=== PATIENT | male | born 1990 | race African-American/Black ===

== ENCOUNTER 2017-06-18 07:44 | Emergency (ER) | payer OTHER ==
[~2017-06-18] VITALS: Ht 188 cm; Wt 93.3 kg
[2017-06-18 07:46] VITALS: BP 176/100
[2017-06-18] MEDS ORDERED: AMOXICILLIN500 M1 PO (08:50)
== END 2017-06-18 09:03 | disposition home or self-care (01) ==
LOC: EME 07:44
DX: J02.0 Streptococcal pharyngitis (principal)
CPT/HCPCS: 87651 90; 99281; 99284